=== PATIENT | female | born 1940 | race Asian ===

== ENCOUNTER 2016-07-10 09:18 | Inpatient (IN) | payer OTHER ==
[~2016-07-10] VITALS: Ht 149.9 cm; Wt 67.1 kg
[2016-07-10] MEDS ORDERED: CLINDAMYCIN PHOS 600 MG/ D5W 50 ML PREMIX IV ONE (09:45)
[2016-07-10] MEDS ORDERED: CHOL2000 PO (10:52)
[2016-07-10] MEDS ORDERED: OMA1G GT (10:52)
[2016-07-10] MEDS ORDERED: AMLO2.5T2 PO (10:52)
[2016-07-10] MEDS ORDERED: LOVA40TA75 PO (10:52)
[2016-07-10] MEDS ORDERED: SITA100T7 PO (10:52)
[2016-07-10] MEDS ORDERED: ASPI-1063 PO (10:52)
[2016-07-10] MEDS ORDERED: LOSA25TA3 PO (10:52)
[2016-07-10] MEDS ORDERED: ALLO100T PO (10:52)
[2016-07-10] MEDS ORDERED: POLYMYXIN 500,000/BACIT.10,000 UNITS in NS IRR 1 L IR ONE (12:12)
[2016-07-10] MEDS ORDERED: LR 1,000 ML IV SCH (12:25)
[2016-07-10] MEDS ORDERED: METOCLOPRAMIDE HCL 10 MG/2 ML VIAL IVP PRN (12:30)
[2016-07-10] MEDS ORDERED: MORPHINE 2 MG/ML INJ. SYRINGE IVP PRN ×3 (12:30)
[2016-07-10] MEDS ORDERED: BUPIVACAINE LIPOSOME/PF 266 MG/20 ML VIAL INFIL ONE ×2 (12:45→14:00)
[2016-07-10] MEDS ORDERED: HYDROcodone/ACETAMIN 5-325 MG TAB (NORCO/ VICODIN) PO PRN (13:15)
[2016-07-10] MEDS ORDERED: HYDROmorphone 1 MG INJ. 1 MG/ML AMPUL IVP PRN (13:15)
[2016-07-10] MEDS ORDERED: ONDANSETRON HCL 4 MG/2 ML VIAL IVP PRN (13:15)
[2016-07-10] MEDS ORDERED: MORPHINE 4 MG/ML INJ. SYRINGE ONE ×2 (13:28→14:01)
[2016-07-10] MEDS ORDERED: ROCURONIUM BROMIDE 10 MG/ML (ZEMURON) ONE (14:00)
[2016-07-10] MEDS ORDERED: NS 100 ML BAG IV ONE (14:00)
[2016-07-10] MEDS ORDERED: SEVOFLURANE 15 MIN GAS INH ONE (14:00)
[2016-07-10] MEDS ORDERED: SUGAMMADEX SODIUM 200 MG/2 ML VIAL IV ONE (14:00)
[2016-07-10] MEDS ORDERED: MIDAZOLAM HCL 5 MG/5 ML VIAL ONE (14:00)
[2016-07-10] MEDS ORDERED: fentaNYL CITRATE 250 MCG/5 ML AMP ONE (14:00)
[2016-07-10] MEDS ORDERED: ONDANSETRON HCL 4 MG/2 ML VIAL ONE (14:00)
[2016-07-10] MEDS ORDERED: NS 1000 ML BAG IV ONE (14:00)
[2016-07-10 15:00] VITALS: BP_SYST 147
[2016-07-10 15:08] VITALS: BP_SYST 147
[2016-07-10] MEDS ORDERED: LEVOFLOXACIN 500 MG/D5W 100 ML IV ONE (16:00)
[2016-07-10 16:03] VITALS: BP_SYST 147
[2016-07-10 16:17] VITALS: BP_SYST 140
[2016-07-10 16:27] VITALS: BP_SYST 147
[2016-07-10 19:45] VITALS: BP_SYST 131
[2016-07-10] MEDS: FAMOTIDINE PF 20 MG/2 ML VIAL IVP SCH (20:33)
[2016-07-11 01:10] VITALS: BP_SYST 123
[2016-07-11] MEDS: HYDROcodone/ACETAMIN 5-325 MG TAB (NORCO/ VICODIN) PO PRN ×2 (02:42→09:32)
[2016-07-11 03:57] VITALS: BP_SYST 134
[2016-07-11 06:40] LABS: BASOPHILS % (AUTO) 0.2 % (0.0-2.0); EOSINOPHILS % (AUTO) 0.2 % (0.0-4.0); HEMATOCRIT 32.6 % (36-48); HEMOGLOBIN 10.9 g/dL (12.0-16.0); LYMPHOCYTES # (AUTO) 1.1 K/uL (1.0-5.5); LYMPHOCYTES % (AUTO) 9.3 % (20.5-51.5); MEAN CORPUSCULAR HEMOGLOBIN 30 pg (27-31); MEAN CORPUSCULAR HGB CONC 33 % (32-36); MEAN CORPUSCULAR VOLUME 88 fL (79.0-98.0); MONOCYTES # (AUTO) 1.5 K/uL (0.0-1.0); MONOCYTES % (AUTO) 12.4 % (1.7-9.3); NEUTROPHILS # (AUTO) 9.8 K/uL (1.8-7.7); NEUTROPHILS % (AUTO) 77.9 % (40.0-70.0); PLATELET COUNT (AUTO) 234 K/uL (130-430); RED BLOOD CELL COUNT(AUTO) 3.69 MIL/uL (4.2-6.2); WHITE BLOOD COUNT (AUTO) 12.4 K/uL (4.8-10.8)
[2016-07-11 07:01] LABS: ALANINE AMINOTRANSFERASE 23 U/L (12-78); ANION GAP 6 (5-15); ASPARTATE AMINOTRANSFERASE 21 U/L (10-37); CALCIUM 8.7 mg/dL (8.4-11.0); CHLORIDE 103 mmol/L (98-107); CREATININE 1.44 mg/dL (0.55-1.30); GLUCOSE 118 mg/dL (70-99); POTASSIUM 4.1 mmol/L (3.5-5.1); SODIUM SERUM 136 mmol/L (136-145); TOTAL BILIRUBIN 0.4 mg/dL (0.0-1.0); TOTAL PROTEIN, SERUM 7.1 g/dL (6.4-8.3); UREA NITROGEN, BLOOD 22 mg/dL (8-21)
[2016-07-11 08:00] VITALS: BP_SYST 112
[2016-07-11] MEDS: ENOXAPARIN SODIUM 30 MG/0.3 ML SYRINGE SUBCUT SCH (09:32)
[2016-07-11] MEDS: FAMOTIDINE PF 20 MG/2 ML VIAL IVP SCH ×2 (09:33→21:19)
[2016-07-11 11:31] VITALS: BP_SYST 121
[2016-07-11] MEDS: METOCLOPRAMIDE HCL 10 MG/2 ML VIAL IVP SCH ×2 (12:14→17:21)
[2016-07-11 15:27] VITALS: BP_SYST 103
[2016-07-12] MEDS: METOCLOPRAMIDE HCL 10 MG/2 ML VIAL IVP SCH ×4 (00:12→17:50)
[2016-07-12] MEDS: D5/0.45 NS 1,000 ML IV SCH ×4 (00:24→22:12)
[2016-07-12 00:50] VITALS: BP_SYST 137
[2016-07-12 03:20] VITALS: BP_SYST 128
[2016-07-12 08:00] VITALS: BP_SYST 133
[2016-07-12] MEDS: ENOXAPARIN SODIUM 30 MG/0.3 ML SYRINGE SUBCUT SCH (10:23)
[2016-07-12] MEDS: FAMOTIDINE PF 20 MG/2 ML VIAL IVP SCH ×2 (10:24→22:12)
[2016-07-12 12:00] VITALS: BP_SYST 144
[2016-07-12] MEDS ORDERED: NA PHOS,M-B/NA PHOS,DI-BA 118 ML (FLEET ENEMA) RC ONE (14:45)
[2016-07-12] MEDS ORDERED: BISACODYL 10 MG/SUPPOSITORY RC ONE (14:45)
[2016-07-12 16:00] VITALS: BP_SYST 140
[2016-07-12 20:20] VITALS: BP_SYST 149
[2016-07-13] MEDS: METOCLOPRAMIDE HCL 10 MG/2 ML VIAL IVP SCH ×4 (00:18→17:25)
[2016-07-13 01:03] VITALS: BP_SYST 142
[2016-07-13 03:35] VITALS: BP_SYST 125
[2016-07-13 06:34] LABS: BASOPHILS # (AUTO) 0.1 K/uL (0.0-0.2); BASOPHILS % (AUTO) 0.5 % (0.0-2.0); EOSINOPHILS # (AUTO) 0.2 K/uL (0.0-0.4); EOSINOPHILS % (AUTO) 2.4 % (0.0-4.0); HEMOGLOBIN 11.2 g/dL (12.0-16.0); LYMPHOCYTES # (AUTO) 1.2 K/uL (1.0-5.5); MEAN CORPUSCULAR HEMOGLOBIN 30 pg (27-31); MEAN CORPUSCULAR HGB CONC 34 % (32-36); MEAN CORPUSCULAR VOLUME 87 fL (79.0-98.0); MONOCYTES # (AUTO) 1.5 K/uL (0.0-1.0); NEUTROPHILS # (AUTO) 7.4 K/uL (1.8-7.7); NEUTROPHILS % (AUTO) 71.1 % (40.0-70.0); PLATELET COUNT (AUTO) 240 K/uL (130-430); RED BLOOD CELL COUNT(AUTO) 3.81 MIL/uL (4.2-6.2); RED CELL DISTRIBUTION WIDTH 12.7 % (9.0-15.0); WHITE BLOOD COUNT (AUTO) 10.4 K/uL (4.8-10.8)
[2016-07-13 06:52] LABS: ANION GAP 8 (5-15); CALCIUM 8.8 mg/dL (8.4-11.0); CHLORIDE 102 mmol/L (98-107); GLUCOSE 153 mg/dL (70-99); POTASSIUM 3.3 mmol/L (3.5-5.1); SODIUM SERUM 135 mmol/L (136-145); UREA NITROGEN, BLOOD 10 mg/dL (8-21)
[2016-07-13 08:00] VITALS: BP_SYST 136
[2016-07-13] MEDS: FAMOTIDINE PF 20 MG/2 ML VIAL IVP SCH ×2 (09:22→20:44)
[2016-07-13] MEDS: ENOXAPARIN SODIUM 30 MG/0.3 ML SYRINGE SUBCUT SCH (09:22)
[2016-07-13] MEDS ORDERED: POTASSIUM CHLORIDE 10 MEQ TAB.PRT.SR PO ONE (11:00)
[2016-07-13 12:00] VITALS: BP_SYST 154
[2016-07-13] MEDS ORDERED: BISACODYL 10 MG/SUPPOSITORY RC ONE (15:00)
[2016-07-13 16:00] VITALS: BP_SYST 148
[2016-07-13] MEDS: BENZOCAINE/MENTHOL 1 EACH LOZENGE MM PRN ×2 (17:24→21:36)
[2016-07-13] MEDS: D5/0.45 NS 1,000 ML IV SCH ×2 (18:51→21:10)
[2016-07-13 20:20] VITALS: BP_SYST 114
[2016-07-14 00:25] VITALS: BP_SYST 131
[2016-07-14 05:02] VITALS: BP_SYST 142
[2016-07-14] MEDS: D5/0.45 NS 1,000 ML IV SCH (05:50)
[2016-07-14] MEDS: METOCLOPRAMIDE HCL 10 MG/2 ML VIAL IVP SCH ×3 (05:50→11:33)
[2016-07-14 06:22] LABS: BASOPHILS # (AUTO) 0.1 K/uL (0.0-0.2); BASOPHILS % (AUTO) 0.7 % (0.0-2.0); EOSINOPHILS # (AUTO) 0.5 K/uL (0.0-0.4); EOSINOPHILS % (AUTO) 4.1 % (0.0-4.0); HEMOGLOBIN 11.8 g/dL (12.0-16.0); LYMPHOCYTES # (AUTO) 1.6 K/uL (1.0-5.5); LYMPHOCYTES % (AUTO) 13.5 % (20.5-51.5); MEAN CORPUSCULAR HEMOGLOBIN 29 pg (27-31); MEAN CORPUSCULAR HGB CONC 33 % (32-36); MEAN CORPUSCULAR VOLUME 88 fL (79.0-98.0); MONOCYTES # (AUTO) 1.3 K/uL (0.0-1.0); MONOCYTES % (AUTO) 11.3 % (1.7-9.3); NEUTROPHILS # (AUTO) 8.3 K/uL (1.8-7.7); NEUTROPHILS % (AUTO) 70.4 % (40.0-70.0); PLATELET COUNT (AUTO) 263 K/uL (130-430); RED BLOOD CELL COUNT(AUTO) 4.08 MIL/uL (4.2-6.2); WHITE BLOOD COUNT (AUTO) 11.8 K/uL (4.8-10.8)
[2016-07-14] MEDS: BENZOCAINE/MENTHOL 1 EACH LOZENGE MM PRN (06:26)
[2016-07-14 06:42] LABS: ANION GAP 7 (5-15); CALCIUM 8.6 mg/dL (8.4-11.0); CHLORIDE 105 mmol/L (98-107); CREATININE 1.32 mg/dL (0.55-1.30); GLUCOSE 142 mg/dL (70-99); POTASSIUM 3.9 mmol/L (3.5-5.1); SODIUM SERUM 137 mmol/L (136-145); UREA NITROGEN, BLOOD 15 mg/dL (8-21)
[2016-07-14] MEDS: ENOXAPARIN SODIUM 30 MG/0.3 ML SYRINGE SUBCUT SCH (08:17)
[2016-07-14] MEDS: FAMOTIDINE PF 20 MG/2 ML VIAL IVP SCH (08:17)
[2016-07-14 13:15] VITALS: BP_SYST 120
[2016-07-14 14:06] VITALS: BP_SYST 120
== END 2016-07-14 15:00 | disposition home or self-care (01) | DRG 355 ==
LOC: SMU 09:18
PROVIDERS: ADMIT Colon & Rectal Surgery; ATTEND Colon & Rectal Surgery
PROC: 0WUF0JZ Supplement Abdominal Wall with Synthetic Substitute, Open Approach (ICD-10-PCS; principal; 2016-07-10 11:25)
DX: K43.0 Incisional hernia with obstruction, without gangrene (principal); K66.0 Peritoneal adhesions (postprocedural) (postinfection); E11.9 Type 2 diabetes mellitus without complications; I10 Essential (primary) hypertension; R05 Cough
CPT/HCPCS: 36415; 71010; 80048; 80053; 82962; 85025; 87081; 94010; 97110-GP; 97116-GP; 97530-GP; C1781; C9290; C9399; J1170; J1650; J1956; J2250; J2270; J2405; J2765; J3010; J3490; J7030; J7120

== ENCOUNTER 2023-06-10 19:50 | Emergency (ER) | payer MEDICAID, OTHER ==
[~2023-06-10] VITALS: Ht 149.9 cm; Wt 68.0 kg
[~2023-06-10 19:50] MED LIST: ALLO100T PO; AMLO2.5T2 PO; ASPI-1393 PO; CHOL2000 PO; LOSA-412 PO; LOVA40TA75 PO; OMA1G GT; SITA100T11 PO
[2023-06-10 20:01] VITALS: BP_SYST 161; PULSE 61; RESP 16; TEMP 98.1; O2SAT 100
[2023-06-10 22:35] VITALS: BP_SYST 124; PULSE 71; RESP 20; TEMP 98.3; O2SAT 97
== END 2023-06-10 22:35 | disposition home or self-care (01) ==
LOC: SED 19:50
DX: S00.83XA Contusion of other part of head, initial encounter (principal); I10 Essential (primary) hypertension; Z88.0 Allergy status to penicillin; Z79.899 Other long term (current) drug therapy; W01.0XXA Fall on same level from slipping, tripping and stumbling without subsequent striking against object, initial encounter; Y93.89 Activity, other specified; Y92.89 Other specified places as the place of occurrence of the external cause; Y99.8 Other external cause status
CPT/HCPCS: 70450-TC; 99284